=== PATIENT | male | born 1950 | race Caucasian/White ===

== ENCOUNTER 2017-07-06 03:01 | Observation (INO) ==
[2017-07-06] MEDS ORDERED: Naloxone 0.4 MG/ML INJ IVP PRN (05:40)
[2017-07-06] MEDS ORDERED: *HR* OxyCODONE Immed Rel 5 MG TABLET PO PRN (05:40)
[2017-07-06] MEDS ORDERED: *HR* Morphine 2 MG/ML SYRINGE IVP PRN (05:48)
[2017-07-06] MEDS ORDERED: Nitroglycerin 0.4 MG TAB.SUBL SL PRN (05:48)
--- NOTE | 2017-07-06 06:01 | Internal Med History&Physical ---
Date of Encounter: 07/06/17 Time of Encounter: 05:51 Assessment and Plan (1) Unstable angina pectoris Current visit: No Status: Acute 1. Will continue heparin gtt, SL nitroglycerin as needed, and Morphine as needed for chest pain. 2. Will cycle troponins and EKG's. 3. Consult cardiology as he will likely need LHC. 4. Will order ECHO to evaluate LV function. (2) CAD (coronary artery disease) Current visit: Yes Status: Chronic 1. Continue home meds as above. 2. Pt with several stents in 2007, none since. 3. Patient follows with Dr. Ilia John in [place] with [facility]. 4. Smoking cessation well advised. Qualifiers: Coronary Disease-Associated Artery/Lesion type: [place] artery [place] vs. transplanted heart: [place] heart Associated angina: with unstable angina Qualified Code(s): I25.110 - Atherosclerotic heart disease of [place] coronary artery with unstable angina pectoris (3) Hypertension Current visit: Yes Status: Acute 1. Continue home meds as appropriate. 2. Monitor BP and adjust dosing as needed. Qualifiers: Hypertension type: essential hypertension Qualified Code(s): I10 - Essential (primary) hypertension (4) DVT prophylaxis Current visit: Yes Status: Acute 1. On heparin gtt for unstable angina. Internal Medicine - H&P: HPI Chief complaint: chest pain Admitted From: Hospital to Hospital Transfer Plans for Post Hospital Care: Home History of present illness: Mr. Cutler is a 67 year old male who presented to the ER at [facility] after awakening from sleep with chest pain and left arm pain and numbness. He checked his blood pressure, noted his SBP was elevated about 190 systolic. He went to the ER there locally and had improvement in his chest pain after subingual nitroglycerin dose. He received a second nitroglycerin, and this relieved his chest pain. According to my discussions with Dr. Garcia at [place], patient had EKG changes suggestive of ischemia. She requested transfer to [place] for ongoing cardiac workup and likely cardiac catheterization. She started him on heparin drip and transferred him to our hospital. Upon my assessment of the patient, he is currently chest pain-free. He has no diaphoresis, nausea, shortness of breath, or left arm pain now. He did have some diaphoresis and left arm pain earlier. He describes his chest pain as a heavy pressure type sensation radiating down his left arm. He also was unable to catch his breath due to the chest tightness. Patient current risk factors include current smoking status, known coronary disease, and strong family history. Patient just lost a brother to heart attack. Patient follows with Dr. Felice John in [place]. He has not had a stress test in a couple years. His last heart catheterization was in 2007 where he had PCI and stent placement. Past Med Surg Social Fam HX - Past Medical History Attestation: Yes The following information was validated with the patient. Source: patient, old records reviewed Medical history: coronary artery disease, hyperlipidemia, hypertension Psychiatric history: no psych history - Past Surgical History Surgical History: angioplasty/stent - Social History Smoking Status: Current every day smoker Alcohol use: rarely Drug use: none Current living situation: Home, With Family Activity Level: Independent ambulation Recent Out of Country Travel Within the Last 8 Weeks: No - Family History Brother Living Status: Cause of : [place] Hx Family Cardiac Disorders: Yes - Additional Family History Additional family history: + CAD; mother had brain tumor Internal Medicine - H&P: Meds Aspirin [Lo-Dose Aspirin EC] 81 mg PO DAILY 07/06/17 [History] Fish Oil/Dha/Epa [Fish Oil 1,200 mg Fish Oil] 1 each PO BID 07/06/17 [History] Loratadine [Claritin] 10 mg PO DAILY 07/06/17 [History] Metoprolol [Lopressor] 25 mg PO DAILY 07/06/17 [History] 3 Allergy/AdvReac Type Severity Reaction Status Date / Time No Known Allergies Allergy Verified 07/06/17 01:02 - Constitutional Constitutional: no chills, no fever(s), no night sweats - EENT Eyes: no blurry vision, no change in vision Ears: no ear pain, no tinnitus Nose, mouth and throat: no nasal congestion, no sinus pain, no sinus pressure - Cardiovascular Cardiovascular ROS IM: chest pain, diaphoresis, other (chest pain radiating to left arm), no lightheadedness, no orthopnea, no palpitations, no paroxysmal nocturnal dyspnea - Respiratory Respiratory: no cough, no hemoptysis, no chest congestion, no excessive phlegm production - Gastrointestinal Gastrointestinal: no abdominal pain, no diarrhea, no hematemesis, no hematochezia, no melena, no nausea, no vomiting - Genitourinary Genitourinary ROS male: no dysuria, no flank pain, no hematuria - Musculoskeletal Musculoskeletal ROS IM: arthralgias, back pain - Integumentary Integumentary IM: no rash, no jaundice - Neurological Neurological ROS: no disequilibrium, no dizziness, no focal weakness, no frequent falls, no headache(s) - Psychiatric Psychiatric: no anxiety, no depression - Endocrine Endocrine IM: no polydipsia, no polyuria - Hematologic/Lymphatic Hematologic/Lymphatic: no easy bruising - Allergic/Immunologic Allergic/Immunologic: no wheezing, no GI upset with certain foods - Constitutional General appearance: Present: cooperative, A&O X 3, pleasant, no acute distress - Head Head exam: Present: atraumatic, normal inspection - Eye Eye exam: Present: EOMI, PERRL. Absent: scleral icterus Pupils: Present: normal accommodation - ENT ENT exam: Present: mucous membranes dry, normal exam, normal oropharynx - Neck Neck exam general surgery: Present: full ROM, supple. Absent: tenderness, nuchal rigidity, thyromegaly - Expanded Neck Exam Neck exam: Absent: carotid bruit - Respiratory Respiratory exam: Present: CTAB. Absent: accessory muscle use, chest wall tenderness, rales, rhonchi, wheezes - Cardiovascular Cardiovascular exam: Present: distant heart sounds, RRR, +S1, +S2. Absent: diastolic murmur, systolic murmur - GI/Abdominal GI/Abdominal exam: Present: normal bowel sounds, soft. Absent: hepatomegaly, mass, splenomegaly, tenderness - Extremities Exam Extremities exam: Present: full ROM, normal capillary refill, warm, radial pulses palpable and symmetrical. Absent: calf tenderness, pedal edema - Back Exam Back exam: Absent: CVA tenderness (L), CVA tenderness (R) - Neurological Exam Neurological exam: Present: alert, CN II-XII intact, oriented X3, no focal deficits - Psychiatric Psychiatric exam: Present: normal affect, normal mood - Skin Skin exam: Present: dry, warm. Absent: rash Internal Med - H&P Results - Labs Labs: I reviewed his labs at [place] and they include the following: WBC 6.8 Hemoglobin 14.1 Hematocrit 41.3 Platelet count 209 PT 12.0 INR1.1 PTT 12.9 Sodium 137 Potassium 3.6 Chloride 104 Carbon dioxide 26 BUN 14 Creatinine 1.51 Troponin less than 0.03 Unfortunately I cannot review an EKG as no paperwork was sent from [place]. - Diagnostic Studies Chest x-ray Status: image reviewed by me (negative) - VTE Reasons for not Prescribing Prophylaxis: Not indicated-Anticoagulated or INR therapeutic
[2017-07-06 06:14] LABS: Basophils # 0.1 K/mcL (0.0-0.2); Basophils % 1.2 %; Eosinophils # 0.3 K/mcL (0.0-0.6); Eosinophils % 4.4 %; Hematocrit 41.3 % (37.5-50.1); Hemoglobin 14.1 g/dL (12.9-16.9); Immature Granulocytes % 0.6 % (0-4); Lymphocytes # 1.8 K/mcL (0.6-4.6); Lymphocytes % 26.5 %; Mean Corpuscular HGB Conc 34.1 g/dL (31.6-35.5); Mean Corpuscular Hemoglobin 31.3 pg (28.0-33.3); Mean Corpuscular Volume 91.8 fL (83.0-100.0); Mean Platelet Volume 9.5 fL (9.4-12.4); Monocytes # 0.8 K/mcL (0.0-1.3); Monocytes % 11.2 %; Neutrophils # 3.8 K/mcL (1.6-8.9); Platelet Count 209 K/mcL (140-400); Segmented Neutrophils % 56.1 %
[2017-07-06 06:20] LABS: INR 1.1
[2017-07-06 06:35] LABS: Alanine Aminotransferase 59 Units/L (7-52); Albumin 4.1 g/dL (3.5-5.7); Albumin/Globulin Ratio 1.6 (1.1-2.2); Alkaline Phosphatase 81 Units/L (34-104); Aspartate Amino Transferase 36 Units/L (13-39); BUN/Creatinine Ratio 11 (6-26); Bilirubin,Total 0.5 mg/dL (0.3-1.0); Blood Urea Nitrogen 14 mg/dL (8-23); Calcium 8.7 mg/dL (8.6-10.3); Carbon Dioxide 24 mEq/L (23-29); Chloride 109 mEq/L (98-107); Globulin 2.5 g/dL (2.4-3.5); Glucose 106 mg/dL (70-105); Magnesium 2.1 mg/dL (1.6-2.6); Osmolality,Calculated 289 (280-300); Potassium 3.7 mEq/L (3.5-5.1); Sodium 139 mEq/L (136-145); Total Protein 6.6 g/dL (6.4-8.9); eGFR For African Americans > 60 (> 60); eGFR For Non-African Americans 54 (> 60)
[2017-07-06 07:20] LABS: Activated Partial Thrombo Time 84.7 Seconds (26.0-36.0)
--- NOTE | 2017-07-06 08:49 | Cardiology Consult Note ---
Date of Encounter: 07/06/17 Time of Encounter: 08:46 Assessment and Plan (1) Chest pain Current Visit: Yes Status: Acute Atypical chest pain with a pleuritic component. Would complete ALLEN, check EKG. Check echo. If negative would recommend stress test. Qualifiers: Chest pain type: unspecified Qualified Code(s): R07.9 - Chest pain, unspecified Discussion w patient/family: The assessment and plan as outlined above was discussed with the patient and/or family members who expressed understanding and agreement. All questions were answered. Thank you for involving us in the care of your patient. Please call with any questions. History of Present Illness Consult date: 07/06/17 Requesting physician: Clementina Beavers Consult reason: Chest pain Chief complaint: Chest pain History of present illness: Mr. Cutler is a 67 year old male with history of CAD. He presented with acute onset chest pain at rest. Pain was pleuritic. Pain did resolve after nitro and has not recoccured. Past Med Surg Social Fam HX - Past Medical History Medical history: coronary artery disease, hyperlipidemia, hypertension Psychiatric history: no psych history - Past Surgical History Surgical History: angioplasty/stent - Social History Smoking Status: Current every day smoker Packs per day: .5 Smokeless Tobacco Status: No Alcohol use: rarely Drug use: none - Family History Brother Living Status: Cause of : [place] Hx Family Cardiac Disorders: Yes Medications and Allergies Aspirin [Lo-Dose Aspirin EC] 81 mg PO DAILY 07/06/17 [History] Fish Oil/Dha/Epa [Fish Oil 1,200 mg Fish Oil] 1 each PO BID 07/06/17 [History] Loratadine [Claritin] 10 mg PO DAILY 07/06/17 [History] Metoprolol [Lopressor] 25 mg PO DAILY 07/06/17 [History] 3 Allergy/AdvReac Type Severity Reaction Status Date / Time No Known Allergies Allergy Verified 07/06/17 01:02 All Systems Review: A 10-system review of systems was performed and is negative for pertinent findings except as documented above in the HPI. Physical Examination General: Conversant, No Apparent Distress HEENT: Atraumatic, Normocephaly, Mucus Membranes Moist Neck: No JVD, Normal carotid pulses Cardiac: Reg Rate and Rhythm, Normal S1 and S2, No Murmur Lungs: Normal Breath Sounds, No Wheeze, Rales, Rhonchi Neuro: Alert and responsive, No focal deficits noted Abdomen: Soft, Non-Tender Skin: No rashes noted on visualized skin Musculoskeletal: No Chest Wall Tenderness Results 07/06/17 06:04 07/06/17 06:04 Lab Results 07/06/17 07/06/17 07/06/17 06:04 06:04 06:04 WBC 6.8 Hgb 14.1 Hct 41.3 Plt Count 209 INR 1.1 APTT 84.7 H D Sodium 139 Potassium 3.7 Chloride 109 H Carbon Dioxide 24 BUN 14 Creatinine 1.33 H Glucose 106 H Calcium 8.7 Magnesium 2.1 Total Bilirubin 0.5 AST 36 ALT 59 H Alkaline Phosphatase 81 Troponin I 07/06/17 06:04 WBC Hgb Hct Plt Count INR APTT Sodium Potassium Chloride Carbon Dioxide BUN Creatinine Glucose Calcium Magnesium Total Bilirubin AST ALT Alkaline Phosphatase Troponin I < 0.03 - EKG Interpretation EKG results cardiology: personally reviewed (No EKG has been done while here. EKG form outside hosp. showed some nonspecific inf. changes but no definite ischemic changes)
[2017-07-06] MEDS: Aspirin Enteric Coated 81 MG Tablet PO SCH (08:55)
[2017-07-06] MEDS: Heparin 25,000 UNIT/500 ML D5W 25,000 UNIT/500 ML BAG IVC SCH (10:31)
[2017-07-06 10:36] LABS: Chol/HDL Ratio 4.8 (0-4.9); Cholesterol 121 mg/dL (< 200); HDL Cholesterol 25 mg/dL (40-59); LDL Cholesterol,Calculated 61 mg/dL (0-99); Triglycerides 176 mg/dL (< 150)
[2017-07-06] MEDS ORDERED: Perflutren Lipid Microsphere 1.3 ML in 0.9 % Sodium Chloride 8.7 ML IVP ONE (11:31)
[2017-07-06] MEDS ORDERED: Perflutren Lipid Microsphere 2 ML VIAL ONE (11:34)
[2017-07-06] MEDS: 0.9 % Sodium Chloride 1,000 ML IVC SCH (17:05)
[2017-07-06] MEDS: Acetaminophen 325 MG TABLET PO PRN (20:39)
[2017-07-06] MEDS: Loratadine 10 MG TABLET PO SCH (20:39)
[2017-07-07] MEDS: 0.9 % Sodium Chloride 1,000 ML IVC SCH (03:31)
[2017-07-07] MEDS: Acetaminophen 325 MG TABLET PO PRN (05:35)
[2017-07-07] MEDS ORDERED: Regadenoson 0.4 MG/5 ML SYRINGE IVP ONE (06:25)
[2017-07-07 07:02] VITALS: BP 112/63
[2017-07-07] MEDS ORDERED: Loratadine 10 MG TABLET PO SCH (09:00)
[2017-07-07] MEDS ORDERED: Metoprolol XL (24 HR) Succ 25 MG TAB.ER.24H PO SCH (09:00)
[2017-07-07] MEDS: Aspirin Enteric Coated 81 MG Tablet PO SCH (09:44)
[2017-07-07] MEDS: Loratadine 10 MG TABLET PO SCH (09:44)
--- NOTE | 2017-07-07 10:46 | Internal Med Progress Note ---
Date of Encounter: 07/07/17 Time of Encounter: 10:44 - Constitutional Vitals: Temp Pulse Resp BP Pulse Ox 98.4 F 80 14 112/63 99 07/07/17 07:00 07/07/17 07:00 07/07/17 07:00 07/07/17 07:00 07/07/17 07:00 General appearance: Present: cooperative, A&O X 3, pleasant, no acute distress - Head Head exam: Present: atraumatic, normocephalic - Cardiovascular Cardiovascular exam: Present: RRR Internal Medicine: Result - Labs CBC & Chem 7: 07/06/17 06:04 07/06/17 06:04 Labs: Cardiac Enzymes 07/06/17 07/06/17 Range/Units 12:05 16:46 Troponin I < 0.03 < 0.03 (< 0.04) ng/mL - ABG Interpretation ABG results: PT/INR, D-dimer PT 12.0 Seconds (9.4-12.1) 07/06/17 06:04 - Impressions Impressions Echocardiogram 07/06/17 06:31 Impressions: LVEF 60%. Mild left ventricular diastolic dysfunction. Definity echo contrast was used. No significant valvular dysfunction. No pulmonary hypertension. Left Ventricular Wall Motion: Rest Echo Findings All wall segments showed normal motion. Findings: Study Quality * Technically challenging with suboptimal windows. ECG Findings * Normal sinus rhythm. Left Ventricle * LVEF 60%. * Mild left ventricular diastolic dysfunction. * Definity echo contrast was used. * LV size and wall thickness measurements not well obtained. Right Ventricle * Normal RV size and function. Left Atrium * Normal left atrial size. Right Atrium * Normal right atrial size. Aortic Valve * No aortic regurgitation. * Aortic valve not well visualized. * No aortic stenosis. Mitral Valve * No mitral regurgitation. * Mitral valve not well visualized. * No mitral stenosis. Tricuspid Valve * Tricuspid valve not well visualized. * Estimated RA pressure is 3 mmHg. * Estimated RVSP is 26 mmHg. * No pulmonary hypertension. * Trace tricuspid regurgitation. Pulmonic Valve * Pulmonic valve is not well visualized. * No pulmonic stenosis. * No pulmonic regurgitation. Pulmonary Artery * Pulmonary artery not well visualized. Aorta * Not well visualized. Pericardium * There is no pericardial effusion present. Interatrial Septum * No evidence of PFO by color Doppler. IVC * Normal IVC dimensions and inspiratory collapse. - VTE Reasons for not Prescribing Prophylaxis: Not indicated-Anticoagulated or INR therapeutic
[2017-07-07] MEDS ORDERED: Acetaminophen 325 MG TABLET PO PRN (10:53)
[2017-07-07] MEDS: Heparin 25,000 UNIT/500 ML D5W 25,000 UNIT/500 ML BAG IVC SCH (12:28)
--- NOTE | 2017-07-07 12:34 | Cardiology Progress Note ---
Date of Encounter: 07/07/17 Time of Encounter: 12:15 Assessment and Plan (1) Chest pain Current Visit: Yes Status: Acute Atypical chest pain with a pleuritic component. Troponin negative x3. No ischemic ECG changes. Chest pain free upon exam. TTE: EF preserved, normal wall motion. Nuclear stress test negative for ischemia or infarct. No further inpatient testing recommended. Continue current medical therapy. Follow-up in the outpatient setting. Qualifiers: Chest pain type: unspecified Qualified Code(s): R07.9 - Chest pain, unspecified (2) CAD (coronary artery disease) Current Visit: Yes Status: Chronic Plan as above. Qualifiers: Coronary Disease-Associated Artery/Lesion type: [place] artery [place] vs. transplanted heart: [place] heart Associated angina: without angina Qualified Code(s): I25.10 - Atherosclerotic heart disease of [place] coronary artery without angina pectoris (3) Hypertension Current Visit: Yes Status: Acute Suspect symptoms largely from elevated BP's. May consider addition of ACEi if needed in future. BP's have been border 100's- 110s as inpatient. Follow-up with Dr. John in the outpatient setting. Qualifiers: Hypertension type: essential hypertension Qualified Code(s): I10 - Essential (primary) hypertension Discussion w patient/family: The assessment and plan as outlined above was discussed with the patient and/or family members who expressed understanding and agreement. All questions were answered. Thank you for involving us in the care of your patient. Please call with any questions. The patient will be discussed and reviewed with Dr. Angulo. Subjective Principal diagnosis: Chest pain Interval history: Seen and examined. No complaints upon exam this AM. Objective General: Conversant, No Apparent Distress HEENT: Atraumatic, Normocephaly, Mucus Membranes Moist Neck: No JVD, Normal carotid pulses Cardiac: Reg Rate and Rhythm, Normal S1 and S2, No Murmur Lungs: Normal Breath Sounds, No Wheeze, Rales, Rhonchi Neuro: Alert and responsive, No focal deficits noted Abdomen: Soft, Non-Tender Skin: No rashes noted on visualized skin Musculoskeletal: No Chest Wall Tenderness Extremities: No Clubbing, No Cyanosis, No Edema, Normal Pulses Results 07/06/17 06:04 07/06/17 06:04 Lab Results 07/06/17 07/06/17 07/06/17 12:05 16:46 16:46 APTT 60.1 H Troponin I < 0.03 < 0.03 07/06/17 07/07/17 07/07/17 23:44 05:24 11:04 APTT 71.5 H 76.1 H 46.4 H Troponin I Active Medications Acetaminophen (Tylenol) 650 mg PO Q6HR PRN PRN Reason: Pain/Fever Stop: 01/05/18 05:41 Aspirin (Aspirin Ec) 81 mg PO DAILY MARY Stop: 01/05/18 09:01 Last Admin: 07/07/17 09:44 Dose: 81 mg Atorvastatin Calcium (Lipitor) 40 mg PO HS MARY Stop: 01/05/18 21:01 Last Admin: 07/06/17 20:07 Dose: 40 mg Loratadine (Claritin) 10 mg PO DAILY MARY Stop: 01/05/18 20:19 Last Admin: 07/07/17 09:44 Dose: 10 mg Metoprolol Succinate (Toprol Xl) 25 mg PO DAILY MARY Stop: 01/06/18 09:01 Last Admin: 07/07/17 09:44 Dose: 25 mg Morphine Sulfate (Morphine Sulfate) 2 mg IVP Q3H PRN; Protocol PRN Reason: Chest Pain Stop: 01/05/18 05:49 Naloxone HCl (Narcan) 0.4 mg IVP Q2MIN PRN PRN Reason: SEE COMMENTS Stop: 01/05/18 05:41 Nitroglycerin (Nitroglycerin) 0.4 mg SL Q5MIN PRN PRN Reason: Chest Pain Stop: 01/05/18 05:49 - Imaging and Cardiology Stress Test: report reviewed Echo: report reviewed - EKG Interpretation EKG results cardiology: personally reviewed - VTE Reasons for not Prescribing Prophylaxis: Not indicated-Anticoagulated or INR therapeutic
--- NOTE | 2017-07-07 13:21 | Discharge Summary ---
<Zee Johns - Last Filed: 07/07/17 13:18> Date of Encounter: 07/07/17 Time of Encounter: 13:18 - Discharge Diagnosis (1) Chest pain Priority: Primary Status: Acute Qualifiers: Chest pain type: unspecified Qualified Code(s): R07.9 - Chest pain, unspecified (2) CAD (coronary artery disease) Priority: Secondary Status: Chronic Qualifiers: Coronary Disease-Associated Artery/Lesion type: [place] artery [place] vs. transplanted heart: [place] heart Associated angina: without angina Qualified Code(s): I25.10 - Atherosclerotic heart disease of [place] coronary artery without angina pectoris (3) Hypertension Priority: Secondary Status: Acute Qualifiers: Hypertension type: essential hypertension Qualified Code(s): I10 - Essential (primary) hypertension (4) DVT prophylaxis Priority: Secondary Status: Acute (5) Encounter for smoking cessation counseling Priority: Secondary Status: Acute Comments: counseled on smoking cessation - Discharge Medications Home Medications: Aspirin [Lo-Dose Aspirin EC] 81 mg PO DAILY 07/06/17 [History] Fish Oil/Dha/Epa [Fish Oil 1,200 mg Fish Oil] 1 cap PO BID 07/06/17 [History] Loratadine [Claritin] 10 mg PO DAILY 07/06/17 [History] Metoprolol XL (24 HR) Succ [Toprol Xl] 25 mg PO DAILY 07/06/17 [History] Pravastatin Sodium [Pravachol] 80 mg PO DAILY 07/06/17 [History] Allergies/Adverse Reactions: 3 Allergy/AdvReac Type Severity Reaction Status Date / Time No Known Allergies Allergy Verified 07/06/17 01:02 Procedures/tests Complete & Pending: Procedures Performed prior 72 hours Category Date Time Status NM ashley perf SPECT multi [NM] Routine Exams 07/06/17 10:11 Taken ECG 12 lead ECG [ECG] Stat Y 07/06/17 05:40 Ordered EKG [ECG 12 lead ECG] [ECG] Routine Y 07/06/17 09:02 Ordered EV echocardiogram w enhance Routine Y 07/06/17 06:31 Completed SP pharm nuclear stress Routine Y 07/06/17 10:10 Completed Date of admission: 07/06/17 04:51 Consults: 07/06/17 05:48 Consult to Physician [CONS] Routine Consulting Provider: Wang Gomez Reason for Consult: unstable angina Call Completed: No Discharging clinician: Ryder Brooks Anticipated date of discharge: 07/07/17 - Patient Status Disposition: Home, Self-Care Condition: Good Functional capacity at discharge: independent ambulation Overall status at discharge: patient is back to baseline - Discharge Instructions Follow Up With: Felice John MD [Partnered Physician] - (Cardiology office will call with appointment.) Muaricio Lua MD [Partnered Physician] - 07/16/17 1:30 pm Additional Instructions: Follow up with PCP in 1 to 2 weeks follow-up with your planning specialist in 1 to 2 weeks return to hospital should you develop fever, chills, worsening chest pain, shortness of breath - Diet and Activity Activity: resume usual activities as tolerated Diet: advance to your usual diet Hospital course: Mr. Cutler is a 67 year old male who presented to the ER at [facility] after awakening from sleep with chest pain and left arm pain and numbness. He checked his blood pressure, noted his SBP was elevated about 190 systolic. He went to the ER there locally and had improvement in his chest pain after subingual nitroglycerin dose. He received a second nitroglycerin, and this relieved his chest pain. According to my discussions with Dr. Garcia at [place], patient had EKG changes suggestive of ischemia. She requested transfer to [place] for ongoing cardiac workup and likely cardiac catheterization. She started him on heparin drip and transferred him to our hospital. Upon admission he was chest pain-free. He has no diaphoresis, nausea , shortness of breath, or left arm pain now. He did have some diaphoresis and left arm pain earlier. He describes his chest pain as a heavy pressure type sensation radiating down his left arm. He also was unable to catch his breath due to the chest tightness. Patient current risk factors include current smoking status, known coronary disease, and strong family history. Patient just lost a brother to heart attack. Patient follows with Dr. Felice John in [place]. He has not had a stress test in a couple years. His last heart catheterization was in 2007 where he had PCI and stent placement. He was admitted and home medications were started, heparin, cardiology was consulted. Troponins were trended. Echocardiogram demonstrated EF 60%, mid-diastolic dysfunction. Stress test demonstrated no acute ischemia. Cardiology signed off and recommended a patient follow-up with his planning specialist outpatient. Upon discharge he denied chest pain, shortness of breath, diaphoresis, nausea. He is alert and oriented times 3 with full capacity and stayed clear understanding of the treatment plan. He was instructed to return to the hospital should he develop fever, chills, chest pain, shortness of breath. He was instructed to follow-up with his planning specialist and PCP in a week or 2. Time spent discussing smoking cessation with patient: more than 10 minutes - Time Spent with Patient Total time spent providing and/or coordinating discharge services: Greater than 30 minutes - Constitutional Vitals: Temp Pulse Resp BP Pulse Ox 98.4 F 80 14 112/63 99 07/07/17 07:00 07/07/17 07:00 07/07/17 07:00 07/07/17 07:00 07/07/17 07:00 General appearance: Present: cooperative, A&O X 3, pleasant, no acute distress Exam: Gen.: Vitals noted. No acute distress. AAOx3 HEENT: oropharynx clear, Normocephalic, atraumatic Neck: Supple. No adenopathy. Cardiac: RRR, no murmur, +S1/S2 Pulmonary: CTA bilaterally, no wheezes, rales or rhonchi, equal chest expansion Abdomen: soft, nontender, Bowel sounds noted, no guarding MSK: ROM intact, no joint swelling noted Extremities: no BLE edema, nontender calf, no cyanosis or clubbing Neuro: A&Ox3, moves all extremities Psych: Appropriate mood and behavior - VTE Reasons for not Prescribing Prophylaxis: Not indicated-Anticoagulated or INR therapeutic <Ryder Brooks H - Last Filed: 07/07/17 14:07> Date of Encounter: 07/07/17 Procedures/tests Complete & Pending: Procedures Performed prior 72 hours Category Date Time Status NM ashley perf SPECT multi [NM] Routine Exams 07/06/17 10:11 Taken ECG 12 lead ECG [ECG] Stat Y 07/06/17 05:40 Ordered EKG [ECG 12 lead ECG] [ECG] Routine Y 07/06/17 09:02 Ordered EV echocardiogram w enhance Routine Y 07/06/17 06:31 Completed SP pharm nuclear stress Routine Y 07/06/17 10:10 Completed Date of admission: 07/06/17 04:51 Consults: 07/06/17 05:48 Consult to Physician [CONS] Routine Consulting Provider: Wang Gomez Reason for Consult: unstable angina Call Completed: No Hospital course: Mr. Cutler is a 67 year old male - Time Spent with Patient Total time spent providing and/or coordinating discharge services: - Constitutional Vitals: Temp Pulse Resp BP Pulse Ox 98.4 F 80 14 112/63 99 07/07/17 07:00 07/07/17 07:00 07/07/17 07:00 07/07/17 07:00 07/07/17 07:00 - Attending Attestation Cardiology will see him as outpatient Time spent on this discharge 40 minutes I examined this patient and my medical decision-making was reviewed with the Resident Physician. I agree with the documented findings, disposition and treatment plan as described except to the extent set forth below.
--- NOTE | 2017-07-08 20:19 | Electrocardiograph Report ---
[place] [id number] Test Date: 2017-07-06 Pat Name: Karl Cutler Department: 2000 Room: [facility] Gender: M Lathe Set Up Operator: MEET : 1950 Requested By: Edu Cao Order Number: [id number] Reading MD: Beka Angulo MD Measurements Intervals [place] Rate: 75 P: 25 CA: 155 QRS: 14 QRSD: 89 T: 73 QT: 356 QTc: 384 Interpretive Statements SINUS RHYTHM BASELINE ARTIFACT Electronically Signed On 07-08-2017 20:18:11 EST by Beka Angulo MD
== END 2017-07-07 14:49 | disposition home or self-care (01) ==
LOC: 2ANU
PROVIDERS: ADMIT Pediatrics; ATTEND Internal Medicine